=== PATIENT | female | born 1960 | race Caucasian/White ===

== ENCOUNTER 2016-11-19 12:59 | Emergency (ER) | payer BC ==
[2016-11-19] MEDS ORDERED: Sodium Chloride 0.9% 10 ML Syringe FLUSH PRN (13:25)
[2016-11-19] MEDS ORDERED: Nitroglycerin 0.4 MG Tab.SL SL PRN (13:25)
--- NOTE | 2016-11-19 13:48 | EDM.PDOC ---
ED HPI GENERAL MEDICAL PROBLEM - General Chief Complaint: Chest Pain Stated Complaint: CHEST PAINS Time Seen by Provider: 11/19/16 13:44 Source of Information: Reports: Patient History Limitations: Reports: No Limitations - History of Present Illness INITIAL COMMENTS - FREE TEXT/NARRATIVE: 56 yo female presents with severe chest pain that was non radiating. States that she was cleaning and pain went across her chest. denies n/v/d but states that she was weak and diaphoretic. No other complaints. 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 Epigastric Pain Score (Numeric/FACES): 1 - Related Data Allergies Allergy/AdvReac Type Severity Reaction Status Date / Time No Known Allergies Allergy Verified 11/19/16 13:11 Home Meds: Home Meds FLUoxetine HCl [Fluoxetine HCl] 20 mg PO ASDIRECTED 11/19/16 [History] Past Medical History HEENT History: Reports: None Cardiovascular History: Reports: None Respiratory History: Reports: None Gastrointestinal History: Reports: None Genitourinary History: Reports: None 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 Musculoskeletal History: Reports: None Neurological History: Reports: None Psychiatric History: Reports: None Endocrine/Metabolic History: Reports: None Hematologic History: Reports: None Immunologic History: Reports: None Oncologic (Cancer) History: Reports: None Dermatologic History: Reports: None - Infectious Disease History Infectious Disease History: Reports: Measles - Past Surgical History Female Surgical History: Reports: Hysterectomy Social & Family History - Family History Family Medical History: Noncontributory - Tobacco Use Smoking Status *Q: Never Smoker - Caffeine Use Caffeine Use: Reports: Coffee, Soda - Recreational Drug Use Recreational Drug Use: No ED ROS GENERAL - Review of Systems Review Of Systems: ROS reveals no pertinent complaints other than HPI. ED EXAM, GENERAL - Physical Exam Exam: See Below Exam Limited By: No Limitations General Appearance: Alert, WD/WN, No Apparent Distress Eye Exam: Bilateral Eye: Normal Inspection, PERRL Nose: Normal Inspection, Normal Mucosa, No Blood Throat/Mouth: Normal Inspection, Normal Lips, Normal Teeth, Normal Gums, Normal Oropharynx, Normal Voice, No Airway Compromise Head: Atraumatic, Normocephalic Neck: Normal Inspection, Supple, Non-Tender, Full Range of Motion Respiratory/Chest: No Respiratory Distress, Lungs Clear, Normal Breath Sounds, No Accessory Muscle Use, Chest Non-Tender Cardiovascular: Normal Peripheral Pulses, Regular Rate, Rhythm, No Edema, No Gallop, No JVD, No Murmur, No Rub GI/Abdominal: Normal Bowel Sounds, Soft, Non-Tender, No Organomegaly, No Distention, No Abnormal Bruit, No Mass Back Exam: Normal Inspection, Full Range of Motion, NT Extremities: Normal Inspection, Normal Range of Motion, Non-Tender, Normal Capillary Refill, No Pedal Edema Neurological: Alert, Oriented, CN II-XII Intact, Normal Cognition, Normal Gait, No Motor/Sensory Deficits Skin Exam: Warm, Dry, Intact, Normal Color, No Rash Course - Vital Signs Last Recorded V/S: Last Vital Signs Temp 97.1 F 11/19/16 17:32 Pulse 60 11/19/16 17:32 Resp 18 11/19/16 17:32 BP 120/75 11/19/16 17:32 Pulse Ox 99 11/19/16 17:32 - Orders/Labs/Meds Orders: Active Orders 24 hr Category Date Time Status Cardiac Monitoring [RC] . DIRECTED Care 11/19/16 13:25 Active EKG 12 Lead [EKG Documentation Completion] [RC] STAT Care 11/19/16 13:14 Active Nitroglycerin [Nitrostat] Med 11/19/16 13:25 Active 0.4 mg SL Q5M PRN Sodium Chloride 0.9% [Saline Flush] Med 11/19/16 13:25 Active 10 ml FLUSH ASDIRECTED PRN Saline Lock Insert [OM.PC] Stat Oth 11/19/16 13:25 Ordered Medication Orders Nitroglycerin (Nitrostat) 0.4 mg SL Q5M PRN PRN Reason: Chest Pain Stop: 11/20/16 13:25 Sodium Chloride (Saline Flush) 10 ml FLUSH ASDIRECTED PRN PRN Reason: Keep Vein Open Last Admin: 11/19/16 13:29 Dose: 10 ml Labs: Laboratory Tests 11/19/16 11/19/16 11/19/16 Range/Units 13:08 13:08 13:08 WBC 8.3 (5.0-10.0) 10^3/uL RBC 4.78 (4.2-5.4) 10^6/uL Hgb 13.5 (12.0-16.0) g/dL Hct 40.9 (37.0-47.0) % MCV 85.6 (80-100) fL MCH 28.2 (27.0-34.0) pg MCHC 33.0 (33.0-35.0) g/dL Plt Count 239 (150-450) 10^3/uL Neut % (Auto) 55.2 (42.2-75.2) % Lymph % (Auto) 34.6 (20.5-50.1) % Kane % (Auto) 8.2 H (2-8) % Eos % (Auto) 1.9 (1.0-3.0) % Baso % (Auto) 0.1 (0.0-1.0) % PT 9.8 (9.0-12.0) SEC INR 1.0 (0.9-1.2) D-Dimer, Quantitative 199 (0-400) ng/mL Sodium 141 (135-145) mmol/L Potassium 3.8 (3.6-5.0) mmol/L Chloride 104 (101-111) mmol/L Carbon Dioxide 26.0 (21.0-31.0) mmol/L Anion Gap 14.8 BUN 15 (7-18) mg/dL Creatinine 0.8 (0.6-1.3) mg/dL Est Cr Clr Drug Dosing TNP Estimated GFR (MDRD) > 60 BUN/Creatinine Ratio 18.75 Glucose 113 H (74-105) mg/dL Calcium 9.3 (8.4-10.2) mg/dl Magnesium (1.8-2.5) mg/dL Total Bilirubin 0.7 (0.2-1.0) mg/dL AST 38 (10-42) IU/L ALT 25 (10-60) IU/L Alkaline Phosphatase 63 (42-121) IU/L Creatine Kinase (26-174) IU/L Creatine Kinase Index (0-2.4) % CK-MB (CK-2) (0.4-4.7) ng/mL Troponin I 0.02 (0.00-0.02) ng/ml B-Natriuretic Peptide (0-100) pg/ml Total Protein 7.3 (6.7-8.2) g/dl Albumin 4.1 (3.2-5.5) g/dl Globulin 3.2 Albumin/Globulin Ratio 1.28 Urine Color (YELLOW) Urine Appearance (CLEAR) Urine pH (5.0-9.0) Ur Specific [place] (1.005-1.030) Urine Protein (NEGATIVE) Urine Glucose (UA) (NEGATIVE) Urine Ketones (NEGATIVE) Urine Occult Blood (NEGATIVE) Urine Nitrite (NEGATIVE) Urine Bilirubin (NEGATIVE) Urine Urobilinogen (0.2-1.0) mg/dL Ur Leukocyte Esterase (NEGATIVE) Urine RBC /HPF Urine WBC (0-5/HPF) /HPF Ur Epithelial Cells /HPF Urine Bacteria (0-FEW/HPF) /HPF Urine Mucus /LPF 11/19/16 11/19/16 11/19/16 Range/Units 13:08 13:08 15:15 WBC (5.0-10.0) 10^3/uL RBC (4.2-5.4) 10^6/uL Hgb (12.0-16.0) g/dL Hct (37.0-47.0) % MCV (80-100) fL MCH (27.0-34.0) pg MCHC (33.0-35.0) g/dL Plt Count (150-450) 10^3/uL Neut % (Auto) (42.2-75.2) % Lymph % (Auto) (20.5-50.1) % Kane % (Auto) (2-8) % Eos % (Auto) (1.0-3.0) % Baso % (Auto) (0.0-1.0) % PT (9.0-12.0) SEC INR (0.9-1.2) D-Dimer, Quantitative (0-400) ng/mL Sodium (135-145) mmol/L Potassium (3.6-5.0) mmol/L Chloride (101-111) mmol/L Carbon Dioxide (21.0-31.0) mmol/L Anion Gap BUN (7-18) mg/dL Creatinine (0.6-1.3) mg/dL Est Cr Clr Drug Dosing Estimated GFR (MDRD) BUN/Creatinine Ratio Glucose (74-105) mg/dL Calcium (8.4-10.2) mg/dl Magnesium (1.8-2.5) mg/dL Total Bilirubin (0.2-1.0) mg/dL AST (10-42) IU/L ALT (10-60) IU/L Alkaline Phosphatase (42-121) IU/L Creatine Kinase 128 (26-174) IU/L Creatine Kinase Index 1.7 (0-2.4) % CK-MB (CK-2) 2.20 (0.4-4.7) ng/mL Troponin I (0.00-0.02) ng/ml B-Natriuretic Peptide 51 (0-100) pg/ml Total Protein (6.7-8.2) g/dl Albumin (3.2-5.5) g/dl Globulin Albumin/Globulin Ratio Urine Color Yellow (YELLOW) Urine Appearance Slightly cloudy (CLEAR) Urine pH 7.0 (5.0-9.0) Ur Specific [place] 1.020 (1.005-1.030) Urine Protein Negative (NEGATIVE) Urine Glucose (UA) Negative (NEGATIVE) Urine Ketones Negative (NEGATIVE) Urine Occult Blood Trace-lysed H (NEGATIVE) Urine Nitrite Negative (NEGATIVE) Urine Bilirubin Negative (NEGATIVE) Urine Urobilinogen 0.2 (0.2-1.0) mg/dL Ur Leukocyte Esterase Trace H (NEGATIVE) Urine RBC 5-10 H /HPF Urine WBC 0-5 (0-5/HPF) /HPF Ur Epithelial Cells Moderate H /HPF Urine Bacteria Few (0-FEW/HPF) /HPF Urine Mucus Few H /LPF 11/19/16 11/19/16 Range/Units 17:40 17:40 WBC (5.0-10.0) 10^3/uL RBC (4.2-5.4) 10^6/uL Hgb (12.0-16.0) g/dL Hct (37.0-47.0) % MCV (80-100) fL MCH (27.0-34.0) pg MCHC (33.0-35.0) g/dL Plt Count (150-450) 10^3/uL Neut % (Auto) (42.2-75.2) % Lymph % (Auto) (20.5-50.1) % Kane % (Auto) (2-8) % Eos % (Auto) (1.0-3.0) % Baso % (Auto) (0.0-1.0) % PT (9.0-12.0) SEC INR (0.9-1.2) D-Dimer, Quantitative (0-400) ng/mL Sodium (135-145) mmol/L Potassium (3.6-5.0) mmol/L Chloride (101-111) mmol/L Carbon Dioxide (21.0-31.0) mmol/L Anion Gap BUN (7-18) mg/dL Creatinine (0.6-1.3) mg/dL Est Cr Clr Drug Dosing Estimated GFR (MDRD) BUN/Creatinine Ratio Glucose (74-105) mg/dL Calcium (8.4-10.2) mg/dl Magnesium 2.5 (1.8-2.5) mg/dL Total Bilirubin (0.2-1.0) mg/dL AST (10-42) IU/L ALT (10-60) IU/L Alkaline Phosphatase (42-121) IU/L Creatine Kinase (26-174) IU/L Creatine Kinase Index (0-2.4) % CK-MB (CK-2) (0.4-4.7) ng/mL Troponin I < 0.02 (0.00-0.02) ng/ml B-Natriuretic Peptide (0-100) pg/ml Total Protein (6.7-8.2) g/dl Albumin (3.2-5.5) g/dl Globulin Albumin/Globulin Ratio Urine Color (YELLOW) Urine Appearance (CLEAR) Urine pH (5.0-9.0) Ur Specific [place] (1.005-1.030) Urine Protein (NEGATIVE) Urine Glucose (UA) (NEGATIVE) Urine Ketones (NEGATIVE) Urine Occult Blood (NEGATIVE) Urine Nitrite (NEGATIVE) Urine Bilirubin (NEGATIVE) Urine Urobilinogen (0.2-1.0) mg/dL Ur Leukocyte Esterase (NEGATIVE) Urine RBC /HPF Urine WBC (0-5/HPF) /HPF Ur Epithelial Cells /HPF Urine Bacteria (0-FEW/HPF) /HPF Urine Mucus /LPF Meds: Medications Generic Name Dose Route Start Last Admin Trade Name Freq PRN Reason Stop Dose Admin Nitroglycerin 0.4 mg 11/19/16 13:25 Nitrostat SL 11/20/16 13:25 Q5M PRN Chest Pain Sodium Chloride 10 ml 11/19/16 13:25 11/19/16 13:29 Saline Flush FLUSH 10 ml ASDIRECTED PRN Administration Keep Vein Open - Re-Assessments/Exams Free Text/Narrative Re-Assessment/Exam: 11/19/16 14:46 NO abnormal cardiac labs currently. will repeat troponin in 4 hours. 11/19/16 18:50 Repeat troponin negative. Pt is pain free and vitals WNL. Discussed case with Dr. Angela who states to check a magnesium and no need for admission for PVCs. 11/19/16 19:00 Magnesium WNL. will dc pain home Departure - Departure Time of Disposition: 19:00 Disposition: Home, Self-Care 01 Condition: Good Clinical Impression: Atypical chest pain Instructions: Nonspecific Chest Pain, [id number] Referrals: PCP,None [Primary Care Provider] - Forms: ED Department Discharge Additional Instructions: Take Motrin as needed for pain. You will need to follow up with your PCP for a possible referral to surveyor chain helper for a stress test. Return for any worsening symptom. Care Plan Goals: Motrin #30 - My Orders Last 24 Hours: My Active Orders 11/19/16 13:14 EKG 12 Lead [EKG Documentation Completion] [RC] STAT 11/19/16 13:25 Cardiac Monitoring [RC] . DIRECTED Nitroglycerin [Nitrostat] 0.4 mg SL Q5M PRN Sodium Chloride 0.9% [Saline Flush] 10 ml FLUSH ASDIRECTED PRN Saline Lock Insert [OM.PC] Stat - Assessment/Plan Last 24 Hours: My Active Orders 11/19/16 13:14 EKG 12 Lead [EKG Documentation Completion] [RC] STAT 11/19/16 13:25 Cardiac Monitoring [RC] . DIRECTED Nitroglycerin [Nitrostat] 0.4 mg SL Q5M PRN Sodium Chloride 0.9% [Saline Flush] 10 ml FLUSH ASDIRECTED PRN Saline Lock Insert [OM.PC] Stat
[2016-11-19 13:54] LABS: CHLORIDE,CL 104 mmol/L (101-111); SODIUM,NA 141 mmol/L (135-145)
[2016-11-19 18:30] VITALS: BP 120/75
--- NOTE | 2016-11-23 15:19 | EKG ---
11/19/2016- LAYO HASKINS - EKG per my reading shows sinus rhythm at the rate of 60 with premature ventricular complex. MOD /[id number]
== END 2016-11-19 19:15 | disposition home or self-care (01) ==
LOC: DL.ED 12:59 → DL.MS 15:00 → DL.ED 19:15
DX: R07.89 Other chest pain (principal); Z90.710 Acquired absence of both cervix and uterus
CPT/HCPCS: 36415; 71010; 80053; 81001; 82550; 82553; 83735; 83880; 84484; 85025; 85379; 85610; 93005; 99285; J7050

== ENCOUNTER 2017-03-08 07:30 | Day surgery (SDC) | payer BC ==
[2017-03-08] MEDS ORDERED: Neostigmine Methylsulfate 10 MG/10 ML MDV IV ONE (07:31)
[2017-03-08] MEDS ORDERED: Glycopyrrolate 0.2 MG/ML 2 ML SDV IV ONE (07:31)
[2017-03-08] MEDS ORDERED: Ondansetron 4 MG/2 ML SDV IV ONE (07:31)
[2017-03-08] MEDS ORDERED: Ketorolac 30 MG/ML SDV IVPUSH ONE (07:31)
[2017-03-08] MEDS ORDERED: fentaNYL 100 MCG/2 ML SDV IV ONE (07:31)
[2017-03-08] MEDS ORDERED: Midazolam 1 MG/ML 2 ML SDV IV ONE (07:31)
[2017-03-08] MEDS ORDERED: Propofol 200 MG/20 ML SDV IV ONE (07:31)
[2017-03-08] MEDS ORDERED: Succinylcholine 200 MG/10 ML MDV IV ONE (07:31)
[2017-03-08] MEDS ORDERED: Dexamethasone 4 MG/ML SDV IV ONE (07:31)
[2017-03-08] MEDS ORDERED: Rocuronium 50 MG/5 ML Vial IV ONE (07:31)
[2017-03-08] MEDS ORDERED: diphenhydrAMINE 50 MG/ML SDV IV ONE (07:31)
[2017-03-08] MEDS ORDERED: ceFAZolin 2 GM in Premix Bag 1 BAG IV ONE (07:58)
[2017-03-08] MEDS: Lactated Ringers 1,000 ML IV SCH ×2 (08:13→11:59)
[2017-03-08] MEDS ORDERED: Acetaminophen/oxyCODONE 325-5 MG Tab PO PRN (10:18)
[2017-03-08] MEDS ORDERED: Morphine 2 MG/ML Syringe IVPUSH PRN (10:19)
[2017-03-08] MEDS ORDERED: Ondansetron 4 MG/2 ML SDV IV PRN (10:20)
[2017-03-08] MEDS ORDERED: Sodium Chloride 0.9% 10 ML Syringe FLUSH PRN (10:22)
--- NOTE | 2017-03-08 10:27 | PCM.SN ---
- Free Text/Narrative Note: Will keep patient overnight for pain control and control of nausea.
--- NOTE | 2017-03-08 15:16 | PCM.SN ---
- Free Text/Narrative Note: Patient is requesting to leave. I would prefer her to stay overnight but she is stable and no other specific reason to keep her. May discharge. FU surgery clinic as needed. Home meds. OTC Motrin or Naprosyn for pain.
--- NOTE | 2017-03-08 15:58 | OR ---
DATE: 03/08/2017 PREOPERATIVE DIAGNOSES: Chronic cholecystitis with cholelithiasis. POSTOPERATIVE DIAGNOSES: Chronic cholecystitis with cholelithiasis. PROCEDURE: Laparoscopic cholecystectomy. ANESTHESIA: General. ESTIMATED BLOOD LOSS: Minimal. SPECIMEN: Gallbladder and stones. INDICATION FOR PROCEDURE: This 56-year-old female has an ultrasound that shows a gallbladder that is packed with stones, and she has symptomatic right upper quadrant abdominal pain. PROCEDURE IN DETAIL: After adequate preparation, trocars were placed in the standard fashion under direct vision. The abdomen was insufflated. Examination of the abdomen did not show any abnormalities. The gallbladder was grasped, and the cystic triangle structures were completely dissected free. The cystic duct and artery were individually triply clipped and divided. The gallbladder was taken off the liver bed using cautery dissection. Hemostasis was secured. The right upper quadrant was irrigated with saline and suctioned clear, and the gallbladder was extracted through the epigastric trocar site. This site was then closed with an 0 Vicryl suture for the fascial layer. All skin incisions were closed with Monocryl. The patient was taken to the recovery room. [facility] /[id number]
[2017-03-08 16:13] VITALS: BP 118/57
--- NOTE | 2017-03-09 12:23 | PCM.SN ---
- Free Text/Narrative Note: Post op. Pt discharged home previous afternoon after discharge criteria met. No anesthesia concerns noted.
== END 2017-03-08 17:05 | disposition home or self-care (01) ==
LOC: DL.SDS 07:30 → EDSTATUS 09:00 → DL.SDS 11:20 → DL.MS 11:20 → DL.SDS 17:05
PROVIDERS: ATTEND Surgery
DX: K80.10 Calculus of gallbladder with chronic cholecystitis without obstruction (principal)
CPT/HCPCS: 47562; A9270; J0330; J0690; J1100; J1200; J1885; J2250; J2405; J2704; J2710; J3010; J7120; J3490

== ENCOUNTER 2018-04-13 09:37 | Day surgery (SDC) | payer BC ==
[~2018-04-13 09:37] MED LIST: Dextrose 5%-0.45% NaCl 1,000 ML IV SCH; Midazolam 1 MG/ML 2 ML SDV ONE; fentaNYL 100 MCG/2 ML SDV ONE
[2018-04-13] MEDS ORDERED: fentaNYL 100 MCG/2 ML SDV IV ONE ×4 (09:38→10:31)
[2018-04-13] MEDS ORDERED: Midazolam 1 MG/ML 2 ML SDV IV ONE ×7 (09:38→10:29)
--- NOTE | 2018-04-13 11:30 | OR ---
DATE: 04/13/2018 PREOPERATIVE DIAGNOSIS: History of anemia. PREOPERATIVE DIAGNOSIS: History of anemia. PROCEDURE: Total colonoscopy. ANESTHESIA: Conscious sedation with IV Versed and fentanyl. SPECIMEN: None. OPERATIVE FINDINGS: Normal colonoscopy. RECOMMENDATION: Followup colonoscopy in 10 years. INDICATION FOR PROCEDURE: This 57-year-old female has had anemia with a hemoglobin in the range of 7 to 8. PROCEDURE IN DETAIL: After adequate preparation, a colonoscope was inserted into the rectum. This was easily passed all the way to the cecum. Confirmation of the cecum was made by visualization of the ileocecal valve, a light shining through the right lower quadrant, and by palpation. The bowel prep was very good. On withdrawal of the scope, a good examination of the colon was accomplished. She has no polyps, masses, bleeding sites, evidence of colitis, or diverticulosis. Anal and rectal examinations are also normal. Air was suctioned from the colon, and the scope was removed. [facility] /[id number]
[2018-04-13 14:40] VITALS: BP 100/55
== END 2018-04-13 12:46 | disposition home or self-care (01) ==
LOC: DL.ENDO 09:37
PROVIDERS: ATTEND Surgery
DX: D64.9 Anemia, unspecified (principal)
CPT/HCPCS: 36415; 45378; 85027; J2250; J3010; J7042

== ENCOUNTER 2022-05-21 00:11 | Emergency (ER) | payer BC ==
[2022-05-21] MEDS ORDERED: Acetaminophen/HYDROcodone 325-10 MG Tab PO ONE (01:06)
[2022-05-21 01:20] LABS: ANION GAP 10.1 mEq/L (7-13)
[2022-05-21] MEDS ORDERED: predniSONE 20 MG Tab PO ONE (02:18)
[2022-05-21] MEDS ORDERED: Cyclobenzaprine 10 MG Tab PO ONE (02:18)
[2022-05-21 03:27] VITALS: BP 158/137; PULSE 66
== END 2022-05-21 02:38 | disposition home or self-care (01) ==
LOC: DL.ED 00:11
DX: G58.9 Mononeuropathy, unspecified (principal); E66.9 Obesity, unspecified; Z88.5 Allergy status to narcotic agent; Z68.27 Body mass index [BMI] 27.0-27.9, adult
CPT/HCPCS: 36415; 73502; 80053; 83605; 85025; 87040; 99283; 99284; A9270; J7512